=== PATIENT | male | born 1955 | race Caucasian/White ===

== ENCOUNTER → 2018-08-09 | Emergency (ER) | payer OTHER ==
[~2018-08-09] MED LIST: Morphine 4 MG/ML VIAL ONE; Ondansetron PF 4 MG/2 ML Vial ONE
[2018-08-09 23:02] LABS: #Basophils 0.1 thou/uL (0.0-0.2); #Eosinphils 0.2 thou/uL (0.0-0.7); #Lymphocytes 2.8 thou/uL (1.20-3.40); #Neutrophils 7.8 thou/uL (1.40-6.50); %Basophils 0.9 % (0.0-1.0); %Eosinophils 1.7 % (0.0-10.0); %Lymphocytes 23.7 % (21.0-51.0); %Monocytes 8.3 % (0.0-10.0); %Neutrophils 65.5 % (42.0-75.0); Hemoglobin 15.3 g/dL (14.0-18.0); Mean Corpuscular HGB CONC 33.9 g/dL (32.0-36.0); Mean Corpuscular Hemoglobin 31.5 pg (27.0-31.0); Mean Corpuscular Volume 92.9 fL (78.0-98.0); Mean Platelet Volume 7.3 fL (7.4-10.4); Platelet Count 194 thou/uL (130-400); RBC Distribution Width 11.7 % (11.5-14.5); Red Blood Cell (RBC) Count 4.85 mill/uL (4.70-6.10); White Blood Cell (WBC) Count 11.9 thou/uL (4.8-10.8)
[2018-08-09 23:15] LABS: ALT (SGPT) 43 U/L (8-55); AST (SGOT) 25 U/L (5-34); Albumin 4.2 g/dL (3.4-4.8); Alkaline Phosphatase 59 U/L (40-150); Anion Gap 14 mmol/L (10-20); BUN (Urea Nitrogen) 17 mg/dL (8.4-25.7); Bilirubin, Total 0.5 mg/dL (0.2-1.2); Calc. Creatinine Clearance 0 mL/min (70-130); Calcium 9.9 mg/dL (7.8-10.44); Carbon Dioxide 24 mmol/L (23-31); Chloride 105 mmol/L (98-107); Estimated GFR-MDRD 60; Globulin 2.9 g/dL (2.4-3.5); Glucose 127 mg/dL (80-115); Lipase 31 U/L (8-78); Potassium 3.9 mmol/L (3.5-5.1); Protein, Total 7.1 g/dL (5.8-8.1); Sodium 139 mmol/L (136-145)
--- NOTE | 2018-08-09 23:27 | RAD ---
PORTABLE CHEST: Date: 08-09-18 An AP portable film at 2247 is presented and compared with a 12-27-09 study. FINDINGS: The heart size is normal and stable. There is no vascular congestion or edema. No pleural effusions a re present. Some minimal streaking over the right hemidiaphragm may be either scarring or atelectasis . I doubt its current significance. IMPRESSION: No definite acute findings. POS: HOME
--- NOTE | 2018-08-10 10:01 | CT ---
PRELIMINARY REPORT/[facility]/EMERGENTY AFTER-HOURS PROCEDURE CT Abdomen and Pelvis With Contrast EXAM DATE/TIME: 08/09/2018 11:35 PM CLINICAL HISTORY: 63 years old, male; Abdominal pain; Localized; Right upper quadrant (ruq) TECHNIQUE: Imaging protocol: Axial computed tomography images of the abdomen and pelvis with intravenous contras t. Coronal and sagittal reformatted images were created and reviewed. Radiation optimization: All CT scans at this facility use at least one of these dose optimization prabhjot hniques: automated exposure control; mA and/or kV adjustment per patient size (includes targeted exam s where dose is matched to clinical indication); or iterative reconstruction. Contrast material: ISOVUE 370; Contrast volume: 96 ml; Contrast route: LT AC; COMPARISON: No relevant prior studies available. FINDINGS: LUNG BASES: Mild bibasal atelectasis and/or pulmonary parenchymal scarring. VASCULAR: There is some coronary artery disease. No abdominal aortic aneurysm, dissection, or retroperitoneal hematoma. There is mild atherosclerosis. PERITONEAL: No free air or free fluid. GI: No hiatal hernia. The stomach contains some fluid and gas. The stomach is not sufficiently distended to evaluate wall t hickening or exclude fold thickening. Slight wall thickening and mucosal enhancement at the antrum an d pylorus which could be correlated for mild distal gastritis. No perigastric or periduodenal inflamm atory stranding seen. No appearance of bowel obstruction. There is no focal mesenteric inflammatory s tranding. No mesenteric lymphadenopathy by size criteria. Scattered fecal material and gas within portions of the colon and rectum. No pericolonic inflammatory stranding. No evidence of acute diverticulitis. The appendix is not visualized. No secondary inflamm ation is seen. HEPATOBILIARY, PANCREAS, SPLEEN: Sagittal hepatic length is 19.7 cm. There are innumerable hypodense hepatic lesions, likely polycysti c changes. Some linear hepatic calcification is noted within the right lobe. No calcified gallstones or biliary dilation. No pericholecystic fluid or stranding. No pancreatic inflammation. Spleen not enlarged. ADRENALS, KIDNEYS, BLADDER, RETROPERITONEAL: Adrenals within normal limits. Symmetric renal enhancement. Mild pelvocaliectasis of the left kidney of uncertain cause. This could be positional or related to mild stricture. Tiny renal hypodensities noted, likely cysts. 3 mm nonobs tructing left upper pole renal calculus. 2 mm left mid pole renal calculus. No perivesical stranding. Slight heterogeneity and mild enlargement of the prostate returning into the base of the bladder. Clinical correlation and followup is advised. MUSCULOSKELETAL: Small non-inflamed fat containing umbilical hernia. Small fat-containing inguinal hernias. Mild degen erative changes of the spine and within the pelvis. No suspicious bone lesion or acute fracture. IMPRESSION: No free air, free fluid or focal mesenteric inflammation. Nonspecific gastrointestinal findings to be correlated clinically as discussed above. Innumerable hepatic lesions, likely cysts. Nonobstructive left renal calculi, however there is mild pyelocaliectasis of the left kidney potentia lly due to stricture at the left UPJ. Other genitourinary findings discussed above. Other incidental findings discussed above. Thank you for allowing us to participate in the care of your patient. Dictated and Authenticated by: Jm Aviles MD 08/10/2018 12:06 AM Central Time ([place] & [place]) CT ABDOMEN AND PELVIS WITH CONTRAST: Date: 08-09-18 Comparison: Abdominal ultrasounds, 01-03-10 and 11-26-08. FINDINGS: Aside from some dependent atelectasis and basilar scarring, the lungs were clear. There is no sign of pericardial effusion. The liver is enlarged. There are too many to count hypodensities scattered throughout the liver rangi ng in size from subcentimeter to just over 5 cm. The appearance is that of multiple hepatic cysts. Ul trasound studies done 10 years ago showed the same. The largest cyst at that time were around 5 cm in size. The spleen, pancreas, and adrenal glands appear normal. There are a few tiny subcentimeter hypodensit ies in the kidneys that are most likely tiny cysts. A few nonobstructing calculi are seen in the left kidney. The left calices and renal pelvis are mildly prominent in size. [id number], the left ure ter is not dilated, nor do I see any definite signs of ureteral calculi. 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 The abdominal aorta is normal in caliber. The bowel shows no inflammatory change around it or wall thickening. No free air or free fluid is not ed. A small fat filled umbilical hernia was present of no concern. CT of the pelvis showed no pelvic masses, fluid collections, or inflammatory changes. The prostate is somewhat generous in size and heterogeneous. Fat filled inguinal hernias were noted. IMPRESSION: 1. Hepatomegaly with too many to count hepatic cysts. This has been seen all the way back to 2009 ult rasounds. 2. No acute GI tract findings to explain pain, nausea, or vomiting. 3. Nonobstructing left renal calculi. Prominent left renal pelvis and calices but no ureteral dilatio n. This is probably chronic. 4. Other findings as listed above. Report in agreement with preliminary reading by [facility]. POS: HOME
== END ==
LOC: BURERS 22:24
DX: R10.10 Upper abdominal pain, unspecified (principal); I10 Essential (primary) hypertension; E78.5 Hyperlipidemia, unspecified
CPT/HCPCS: 71045; 74177; 80053; 83690; 85025; 93005; 96361; 96374; 96375; J2270; J2405

== ENCOUNTER 2020-08-14 22:31 | Emergency (ER) | payer OTHER ==
[2020-08-14 23:13] LABS: Bilirubin Negative (Negative); Blood, Urine Negative (Negative); Clarity Clear (Clear); Glucose, Urine (Dipstick) Negative (Negative); Ketone, Urine Trace mg/dL (Negative); Leukocyte Negative (Negative); Nitrite Negative (Negative); Protein, Urine (Dipstick) Negative (Neg-Trace); Specific Gravity, Urine 1.025 (1.005-1.030)
[2020-08-14 23:51] LABS: Hemoglobin 14.7 g/dL (14.0-18.0); Mean Corpuscular HGB CONC 34.3 g/dL (32.0-36.0); Mean Corpuscular Hemoglobin 31.5 pg (27.0-31.0); Mean Platelet Volume 6.8 fL (7.4-10.4); Platelet Count 215 thou/uL (130-400); RBC Distribution Width 11.8 % (11.5-14.5); Red Blood Cell (RBC) Count 4.65 mill/uL (4.70-6.10)
[2020-08-15 00:02] LABS: ALT (SGPT) 68 U/L (8-55); AST (SGOT) 26 U/L (5-34); Albumin 3.8 g/dL (3.4-4.8); Alkaline Phosphatase 65 U/L (40-110); Anion Gap 14 mmol/L (10-20); BUN (Urea Nitrogen) 13 mg/dL (8.4-25.7); Bilirubin, Total 0.7 mg/dL (0.2-1.2); Calc. Creatinine Clearance 0 mL/min (70-130); Calcium 9.4 mg/dL (7.8-10.44); Carbon Dioxide 22 mmol/L (23-31); Chloride 103 mmol/L (98-107); Globulin 3.2 g/dL (2.4-3.5); Glucose 115 mg/dL (80-115); Sodium 135 mmol/L (136-145)
[2020-08-15 00:04] LABS: Eosinophils 1 % (0-10); Lymphocytes 23 % (21-51); MDiff Complete? YES; Monocytes 15 % (0-10); Neutrophil 61 % (42-75); Platelet Morphology Comment Appears Adequate; RBC Morphology Normal
== END 2020-08-15 00:20 | disposition home or self-care (01) ==
LOC: BURERS 22:31
DX: R50.9 Fever, unspecified (principal); E78.5 Hyperlipidemia, unspecified; E78.00 Pure hypercholesterolemia, unspecified; I10 Essential (primary) hypertension; Z79.899 Other long term (current) drug therapy
CPT/HCPCS: 36415; 71046; 80053; 81003; 83605; 85025; 85652; 86140; 87040

== ENCOUNTER 2020-09-20 18:57 | Emergency (ER) | payer OTHER ==
[2020-09-20 19:21] LABS: Bilirubin Small (Negative); Blood, Urine Negative (Negative); Clarity Clear (Clear); Glucose, Urine (Dipstick) Negative (Negative); Ketone, Urine Trace mg/dL (Negative); Leukocyte Negative (Negative); Nitrite Negative (Negative); Protein, Urine (Dipstick) 30 mg/dL (Neg-Trace); pH, Urine 7.5 (5.0-9.0)
[2020-09-20 19:35] LABS: Bacteria/HPF Rare-Few HPF (None Seen); RBC/HPF 0-3 HPF (0-3); Squamous Epithelial 0-3 HPF (0-3); WBC/HPF 0-3 HPF (0-3)
[2020-09-20] MEDS ORDERED: Ibuprofen 800 MG TAB ONE (19:36)
== END 2020-09-20 19:40 | disposition home or self-care (01) ==
LOC: BURERS 18:57
DX: B34.9 Viral infection, unspecified (principal); E78.5 Hyperlipidemia, unspecified; E78.00 Pure hypercholesterolemia, unspecified; I10 Essential (primary) hypertension; Z79.899 Other long term (current) drug therapy
CPT/HCPCS: 81003; 81015; 87086; 99283

== ENCOUNTER 2020-09-22 14:58 | Emergency (ER) | payer OTHER ==
[2020-09-22] MEDS ORDERED: Acetaminophen 500 MG TAB ONE (15:29)
[2020-09-22] MEDS ORDERED: Ibuprofen 800 MG TAB ONE (15:31)
[2020-09-22 15:54] LABS: Hemoglobin 14.8 g/dL (14.0-18.0); Mean Corpuscular HGB CONC 34.2 g/dL (32.0-36.0); Mean Corpuscular Hemoglobin 31.6 pg (27.0-31.0); Mean Corpuscular Volume 92.3 fL (78.0-98.0); Mean Platelet Volume 8.3 fL (7.4-10.4); Platelet Count 118 thou/uL (130-400); RBC Distribution Width 12.2 % (11.5-14.5); Red Blood Cell (RBC) Count 4.67 mill/uL (4.70-6.10); White Blood Cell (WBC) Count 8.4 thou/uL (4.8-10.8)
[2020-09-22 16:13] LABS: ALT (SGPT) 191 U/L (8-55); AST (SGOT) 64 U/L (5-34); Albumin 3.8 g/dL (3.4-4.8); Alkaline Phosphatase 127 U/L (40-110); Anion Gap 16 mmol/L (10-20); BUN (Urea Nitrogen) 14 mg/dL (8.4-25.7); Bilirubin, Total 3.1 mg/dL (0.2-1.2); Calc. Creatinine Clearance 0 mL/min (70-130); Calcium 9.5 mg/dL (7.8-10.44); Carbon Dioxide 21 mmol/L (23-31); Chloride 101 mmol/L (98-107); Globulin 3.6 g/dL (2.4-3.5); Glucose 125 mg/dL (80-115); Potassium 3.9 mmol/L (3.5-5.1); Protein, Total 7.4 g/dL (5.8-8.1); Sodium 134 mmol/L (136-145)
[2020-09-22 16:18] LABS: Band 1 % (5-11); Lymphocytes 6 % (21-51); MDiff Complete? YES; Monocytes 11 % (0-10); Neutrophil 82 % (42-75); Platelet Morphology Comment Appears Decreased
== END 2020-09-22 17:57 | disposition short-term general hospital (02) ==
LOC: BURERS 14:58
DX: R50.9 Fever, unspecified (principal); R74.8 Abnormal levels of other serum enzymes; R17 Unspecified jaundice; R74.01 Elevation of levels of liver transaminase levels; I10 Essential (primary) hypertension; E78.00 Pure hypercholesterolemia, unspecified; Z79.899 Other long term (current) drug therapy
CPT/HCPCS: 36415; 71046; 80053; 83605; 85025; 87040; 87077; 87149; 87186